=== PATIENT | male | born 1975 | race Caucasian/White ===

== ENCOUNTER 2017-04-14 11:02 | Emergency (ER) | payer MEDICARE, OTHER ==
[~2017-04-14] VITALS: Ht 170.2 cm; Wt 74.8 kg
--- NOTE | 2017-04-14 11:05 | NUR ---
HAYLIE HERNANDEZ FROM THE STREETS. COMPLAINING HE IS HUNGRY. POSSIBLE ETOH. STABLE VITALS. AWAITING MD DISLA.
[2017-04-14] MEDS ORDERED: TDAP [DIPH/PERTUSSIS/TET] 0.5 ML VIAL IM ONE ×2 (12:23→12:30)
--- NOTE | 2017-04-14 12:47 | NUR ---
WOUND CARE PROVIDED. FOOD. D/C IN STABLE CONDITION.
[2017-04-14 12:49] VITALS: BP 132/80
== END 2017-04-14 12:50 | disposition home or self-care (01) ==
LOC: ER 11:09
DX: Z48.00 Encounter for change or removal of nonsurgical wound dressing (principal); Z59.0 Homelessness; E11.9 Type 2 diabetes mellitus without complications; F20.9 Schizophrenia, unspecified; Z23 Encounter for immunization
CPT/HCPCS: 90471; 90715; 99283; A4606; Z7610